=== PATIENT | female | born 1955 | race Caucasian/White ===

== ENCOUNTER 2019-04-18 12:29 | Inpatient (IN) | payer MEDICAID ==
[~2019-04-18] VITALS: Ht 152.4 cm; Wt 64.9 kg
[2019-04-18 13:00] VITALS: BP 139/71
--- NOTE | 2019-04-18 13:04 | NUR ---
WAIT AT LOBBY.HANDED ON URINE CUP.
--- NOTE | 2019-04-18 14:38 | NUR ---
63 Y/O FEMALE BIB DAUGHTER C/O LOWER BACK PAIN, FEVER, AND URINARY FREQUENCY X 2 DAYS. WAS REFERRED FROM URGENT CARE. DENIES TRAUMA TO LOWER BACK. DENIES NAUSEA/VOMITING/DIARRHEA. PT PRESENTS WITH LOW GRADE FEVER AT THIS TIME. STATES SHE HAS NOT TAKEN ANY MEDICATION FOR PAIN. PT SITTING UPRIGHT POSITIONED FOR COMFORT. RR EVEN AND UNLABORED. VSS. MEDHX: DENIES ALLERGIES: NKA
[2019-04-18] MEDS ORDERED: NACL 0.9% 1,000 ML IV SCH (14:49)
--- NOTE | 2019-04-18 15:09 | NUR ---
PT TO CT VIA WHEELCHAIR
[2019-04-18 15:34] LABS: APPEARANCE,URINE CLEAR (CLEAR); BILIRUBIN,URINE NEGATIVE (NEGATIVE); BLOOD, URINE 3+ (NEGATIVE); COLOR,URINE YELLOW (YELLOW); LEUKOCYTE ESTERASE ,URINE 1+ (NEGATIVE); NITRITE, URINE NEGATIVE (NEGATIVE); UGLUCOSE NEGATIVE (NEGATIVE)
[2019-04-18 15:35] LABS: BASOPHILS % (AUTO) 0.5 % (0.0-2.0); EOSINOPHILS % (AUTO) 0.3 % (0.0-4.0); HEMATOCRIT 39.8 % (36-48); HEMOGLOBIN 13.6 g/dL (12.0-16.0); LYMPHOCYTES # (AUTO) 1.8 K/uL (2.5-16.5); LYMPHOCYTES % (AUTO) 29.5 % (20.5-51.1); MEAN CORPUSCULAR HEMOGLOBIN 30 pg (27-31); MEAN CORPUSCULAR HGB CONC 34 g/dL (33-37); MEAN CORPUSCULAR VOLUME 87.5 fL (80-94); MONOCYTES # (AUTO) 0.6 K/uL (0.8-1.0); MONOCYTES % (AUTO) 9.5 % (1.7-9.3); NEUTROPHILS # (AUTO) 3.6 K/uL (1.8-7.7); NEUTROPHILS % (AUTO) 60.2 % (42.2-75.2); PLATELET COUNT (AUTO) 257 K/uL (140-450); RED BLOOD CELL COUNT(AUTO) 4.55 MIL/uL (4.20-5.40); RED CELL DISTRIBUTION WIDTH 13.3 % (11.6-13.7)
--- NOTE | 2019-04-18 15:40 | NUR ---
PT SITTING UPRIGHT AWAKE AND ALERT, RR EVEN AND UNLABORED. CALM AND PLEASANT. DAUGHTER AT BEDSIDE. WILL CONTINUE TO MONITOR
[2019-04-18 15:46] LABS: ALBUMIN 3.7 g/dL (3.4-5.0); ANION GAP 12.4 (8-16); CARBON DIOXIDE 28.3 mmol/L (21-32); CREATININE 0.8 mg/dL (0.6-1.3); POTASSIUM 3.7 mmol/L (3.5-5.1); TOTAL BILIRUBIN 0.3 mg/dL (0.0-1.0)
[2019-04-18 16:02] LABS: WBC,URINE 0-5 /HPF (0-5)
[2019-04-18] MEDS ORDERED: metroNIDAZOLE 500 MG/NS PREMIX 100 ML IV ONE (17:05)
[2019-04-18] MEDS ORDERED: MORPHINE SULFATE 4 MG/ML SYR IVP ONE (17:05)
[2019-04-18] MEDS ORDERED: KETOROLAC 15 MG/ML VIAL IVP PRN (17:10)
[2019-04-18] MEDS ORDERED: DOCUSATE SODIUM 100 MG GELCAP PO PRN (17:10)
[2019-04-18] MEDS ORDERED: ACETAMINOPHEN 325 MG TAB PO PRN (17:10)
[2019-04-18] MEDS ORDERED: ONDANSETRON 4 MG/2 ML VIAL IM/IVP PRN (17:10)
[2019-04-18] MEDS ORDERED: MORPHINE SULFATE 2 MG/ML SYR IVP PRN (17:10)
[2019-04-18] MEDS ORDERED: cefTRIAXone 1,000 MG VIAL ONE (17:13)
--- NOTE | 2019-04-18 17:21 | NUR ---
XRAY AT BEDSIDE
--- NOTE | 2019-04-18 17:28 | NUR ---
PT STATES DECREASE IN PAIN, 5/10 TOLERABLE PAIN. PT LAYING WITH EYES CLOSED, VISIBLE RISE AND FALL OF THE CHEST. WILL CONTINUE TO MONITOR.
[2019-04-18] MEDS ORDERED: PANTOPRAZOLE 40 MG INJ VIAL IVP SCH (17:30)
[2019-04-18 17:43] LABS: PROTHROMBIN TIME 10.4 secs (10.8-13.4)
[2019-04-18 17:46] LABS: BARBITURATE, URINE NEG. ng/ml (NEG <=200); BENZODIAZEPINE, URINE NEG. ng/mL (NEG <=200); CANNABINOID, URINE NEG. ng/mL (NEG <=50); COCAINE, URINE NEG. ng/mL (NEG <=300); OPIATE, URINE NEG. ng/mL (NEG <=2000); PHENCYCLIDINE SCREEN,URINE NEG. ng/mL (NEG <=25)
--- NOTE | 2019-04-18 17:55 | NUR ---
FLAGYL NOT STARTED IN ER. MEDICATION NOT PULLED, XI KIRBY MADE AWARE.
--- NOTE | 2019-04-18 17:55 | NUR ---
PATIENT ADMITTED FROM ED. RECEIVED PT FROM ED STAFF TRANSFERRED VIA HOSPITAL BED. PT AAOX4, AMBULATORY, CONTINENT. IV 20 GAUGE LOCATED ON LAC. TELE MONITOR PLACED. INITIAL VITALS: T:99.6 ORAL, P:82 R:19 SPO2: 95 ON ROOM AIR B/P: 140/71 PAIN: 9/10. MRSA SWAB COMPLETED AT BEDSIDE. PT IN STABLE CONDITION. NO SIGNS OF DISTRESS NOTED. ORIENTED PATIENT TO ROOM, RESTROOM, CALL LIGHT, TV, AND BED LIGHTS. SAFETY MEASURES IN PLACE. BED IN LOW POSITION AND CALL LIGHT WITHIN REACH. PATIENT INFORMED TO CALL FOR ASSISTANCE.
--- NOTE | 2019-04-18 17:55 | NUR ---
Patient will be admitted to care of DR TEAGUE. Admited to TELE. Will go to room 122B. Belongings list completed. Report to XI KIRBY.
--- NOTE | 2019-04-18 18:00 | NUR ---
PER PT'S DAVI'S PT'S BIRTHDAY IS INCORRECT ON WRIST BAND, HER BIRTHDAY IS 1955, AND SHE HAS NOTIFIED ED STAFF. CALLED ADMISSION AND PER ADMISSION, SHE WILL TRANSFER CALL TO ED. SPOKE WITH STAFF AT ED, INFORMED THAT PT'S BIRTHDAY IS INCORRECT ON WRIST BAND. PER ED STAFF, SHE WILL VERIFY, THEN CORRECT IT AND NOTIFIED ADMISSION TO SEND A NEW WRIST BAND. NOTIFIED WATERSHED ENGINEER AND WATERSHED ENGINEER AWARE.
[2019-04-18] MEDS: DEXT 5% /NACL 0.9% 1,000 ML IV SCH (18:02)
--- NOTE | 2019-04-18 18:03 | NUR ---
STARTED IVF D5NS AT 80 ML/HR.
--- NOTE | 2019-04-18 18:20 | NUR ---
ADMINISTERED FLAGYL VIA IVPB AND PROTONIX VIA IVP PER MD ORDER, MEDS ED PROVIDED TO PT AND DAUGHTER DAVI AT BEDSIDE. NO SIGNS OF DISTRESS NOTED. TELE MONITOR ATTACHED. SAFETY MEASURES IN PLACE.
--- NOTE | 2019-04-18 18:33 | NUR ---
PT COMPLAINED OF DRY MOUTH, EXPLAINED TO PT AND DAUGHTER DAVI THAT PT NEED TO BE NPO PER MD ORDER. BOTH AWARE. PROVIDED ICE CHIPS.
[2019-04-18 18:34] LABS: MAGNESIUM 2.1 mg/dL (1.8-2.4); PHOSPHORUS 2.7 mg/dL (2.5-4.9); THYROID STIMULATING HORMONE 2.05 uIU/mL (0.34-3.74)
--- NOTE | 2019-04-18 19:18 | NUR ---
ENDORSED PT AT BEDSIDE TO EATING DISORDER SPECIALIST NURSE FOR CONTINUITY OF CARE. PT IS AWAKE AND TALKING TO FAMILY AT BEDSIDE. NO SIGNS OF DISTRESS NOTED. TELE MONITOR ATTACHED. PT IS IN STABLE CONDITION. ENDORSED EATING DISORDER SPECIALIST NURSE TO FOLLOW UP ON ARM BAND.
--- NOTE | 2019-04-18 19:30 | NUR ---
RECEIVED PT AWAKE ALERT AND ORIENTED X4, AMBULATORY, RESP EVEN AND EASY,LUNG SOUNDS CLEAR, VITAL SIGN WNL, DENIES PAIN AT THIS TIME,IV INFUSING ON LAC,INTACT AND PATENT, ABDOMEN SOFT AND NONTENDER, BOWEL SOUNDS POSITIVE, CALL LIGHT ON REACH , CONTINUE TO MONITOR PT.
[2019-04-18 20:00] VITALS: BP 95/67
--- NOTE | 2019-04-18 21:30 | NUR ---
PM MEDS GIVEN ORDERED ,PT TOLERATED WELL, EKG DONE AT THE BED SIDE, CALL LIGHT ON REACH.
[2019-04-18] MEDS: DICYCLOMINE HCL LIQUID 10 MG/5 ML UDC PO SCH (21:38)
[2019-04-18] MEDS ORDERED: metroNIDAZOLE 500 MG/NS PREMIX 100 ML IV SCH (23:00)
[2019-04-19] VITALS: BP 112/58
[2019-04-19] MEDS: metroNIDAZOLE 500 MG/NS PREMIX 100 ML IV SCH ×3 (01:36→17:46)
--- NOTE | 2019-04-19 02:10 | NUR ---
PT COMPLAIN LEFT LOWER ABDOMINAL PAIN, 6/10 ON THE PAIN SCALE, TORADOL 15 MG IVP GIVEN ,CONTINUE TO MONITOR PT.
--- NOTE | 2019-04-19 04:00 | NUR ---
PT SLEEPING, VITAL SIGN WNL ,IV INFUSING, NO SIGN OF DISCOMFORT NOTED
[2019-04-19 04:39] VITALS: BP 102/46
[2019-04-19 06:33] LABS: ANION GAP 8.5 (8-16); CARBON DIOXIDE 28.2 mmol/L (21-32); CREATININE 0.8 mg/dL (0.6-1.3); POTASSIUM 3.7 mmol/L (3.5-5.1)
--- NOTE | 2019-04-19 06:37 | NUR ---
PT SLEPT 6-8 HRS ON AND OFF, VITAL SIGN WNL, WILL ENDORSE TO DAY NURSE FOR CONTINUITY OF CARE.
[2019-04-19 06:48] LABS: CHOL/HDL RATIO 4.3 (1-4.5)
--- NOTE | 2019-04-19 07:30 | NUR ---
RECEIVED PT FROM PM SHIFT RN. PT KINYARWANDA SPEAKING. AWAKE, ALERT. ON RA, NO S/S OF RESPIRATORY DISTRESS NOTED. LUNG SOUNDS CLEAR. PT HAS IV TO LEFT AC RUNNING D5 NS AT 100 CC/HR. PT DENIES PAIN, PT ABLE TO MOVE ALL HER EXTREMITIES. HOB ELEVATED 30 DEGREES WITH LOW BED POSITION, CALL LIGHT IN REACH, WILL CONTINUE TO MONITOR.
[2019-04-19 08:00] VITALS: BP 117/58
[2019-04-19 08:14] LABS: BASOPHILS % (AUTO) 0.7 % (0.0-2.0); EOSINOPHILS # (AUTO) 0.1 K/uL (0-0.4); EOSINOPHILS % (AUTO) 1.6 % (0.0-4.0); HEMATOCRIT 32.7 % (36-48); HEMOGLOBIN 11.4 g/dL (12.0-16.0); LYMPHOCYTES # (AUTO) 1.9 K/uL (2.5-16.5); LYMPHOCYTES % (AUTO) 35.9 % (20.5-51.1); MEAN CORPUSCULAR HEMOGLOBIN 31 pg (27-31); MEAN CORPUSCULAR HGB CONC 35 g/dL (33-37); MEAN CORPUSCULAR VOLUME 88.3 fL (80-94); MONOCYTES # (AUTO) 0.7 K/uL (0.8-1.0); MONOCYTES % (AUTO) 13.7 % (1.7-9.3); NEUTROPHILS # (AUTO) 2.5 K/uL (1.8-7.7); NEUTROPHILS % (AUTO) 48.1 % (42.2-75.2); PLATELET COUNT (AUTO) 205 K/uL (140-450); RED BLOOD CELL COUNT(AUTO) 3.71 MIL/uL (4.20-5.40); RED CELL DISTRIBUTION WIDTH 13.6 % (11.6-13.7); WHITE BLOOD COUNT (AUTO) 5.2 K/uL (4.8-10.8)
--- NOTE | 2019-04-19 08:35 | NUR ---
PATIENT HAS BEEN SCREENED AND CATEGORIZED MODERATE NUTRITION RISK. PATIENT WILL BE SEEN WITHIN 3-5 DAYS OF ADMISSION. 04/21/19 04/23/[address]
[2019-04-19] MEDS ORDERED: PANTOPRAZOLE 40 MG INJ VIAL IVP SCH (09:00)
--- NOTE | 2019-04-19 09:00 | NUR ---
ZULY ALEXANDER MD, DR IN UNIT. ASKED ABOUT NPO ORDER. PER DR. CARUSO, OK NPO EXCEPT MEDS. DR. ALLEN STATED HE WILL CHANGE ORDER TO NPO EXCEPT MEDS.
[2019-04-19] MEDS: DICYCLOMINE HCL LIQUID 10 MG/5 ML UDC PO SCH (09:01)
[2019-04-19] MEDS: DEXT 5% /NACL 0.9% 1,000 ML IV SCH ×3 (09:04→22:59)
[2019-04-19 12:00] VITALS: BP 118/55
--- NOTE | 2019-04-19 12:13 | NUR ---
PT SITTING IN BED WATCHING IPAD. FAMILY AT BEDSIDE. DENIES DISCOMFORT AT THIS TIME.
--- NOTE | 2019-04-19 14:44 | NUR ---
DC PLANN[age] YRS OLD FEMALE PATIENT WAS ADMITTED FROM HOME WITH A DX OF DIVERTICULITIS, MICROPERFORATION, . PT HAS A HX OF HTN , NEPHROLITHIASIS AND CHRONIC COLITIS. CT ABD SHOWED ACUTE SIGMOID DIVERTICULITIS .STARTED ON IVF, FLAGYL AND ROCEPHIN IV ABX . CONSULTED WITH GI DR CARUSO AND SURGEON DR MOREAU. URINE CULTURE PENDING. DC PLAN TO GO HOME WHEN STABLE. CM TO FOLLOW. Addendum: 04/20/19 at 1424 by Rocio Stanton CM DC PLANNING: SEEN BY DR CARUSO RECOMMENDED SUPPORTIVE CARE AND CONSIDER COLONOSCOPY IN THE NEAR FUTURE ONCE THE ACUTE DIVERTICULITIS SYMPTOMS RESOLVE. CONTINUE IV ABX AND IVF. DC PLAN TO GO HOME WHEN STABLE. CM TO FOLLOW.
[2019-04-19 16:00] VITALS: BP 120/53
[2019-04-19] MEDS ORDERED: HYOSCYAMINE 0.125 MG TAB PO PRN (16:10)
--- NOTE | 2019-04-19 19:15 | NUR ---
REPORT RECEIVED FROM AM NURSE AT BEDSIDE. PT IN STABLE CONDITION. AAOX4. INTRODUCED SELF TO PT. BOARD UPDATED. NO COMPLAINTS OF PAIN. NO SOB. AFEBRILE. PT IS AMBULATORY. PT IS SERBIAN SPEAKING. IV SITE L AC 20G RUNNING D5NS@70ML/HR PATENT AND INTACT. SKIN WARM, DRY, AND INTACT WITH NO OPEN WOUNDS. BED LOCKED IN LOW POSITION. CALL JOHNSON IN REACH. SAFETY PRECAUTION IN PLACE. ALL NEEDS MET AT THIS TIME.
[2019-04-19 20:00] VITALS: BP 135/60
--- NOTE | 2019-04-19 20:25 | NUR ---
PT FAMILY AT BEDSIDE. UPDATED FAMILY AND PT WITH PLAN OF CARE. PLAN UNDERSTOOD.
--- NOTE | 2019-04-19 22:15 | NUR ---
PT AWAKE AND ALERT WATCHING SHOWS ON HER IPAD. NO S/S OF DISTRESS NOTED. WILL CONTINUE TO MONITOR.
[2019-04-20] VITALS: BP 130/56
--- NOTE | 2019-04-20 00:25 | NUR ---
PT SLEEPING COMFORTABLY BUT AROUSABLE. VS STABLE. NO S/S OF DISTRESS NOTED. WILL CONTINUE TO MONITOR.
[2019-04-20] MEDS: metroNIDAZOLE 500 MG/NS PREMIX 100 ML IV SCH ×3 (01:48→18:11)
--- NOTE | 2019-04-20 01:48 | NUR ---
ELIUD HUNG AND RUNNING. PT TOLERATING WELL.
--- NOTE | 2019-04-20 03:15 | NUR ---
PT SLEEPING COMFORTABLY BUT AROUSABLE. NO S/S OF DISTRESS NOTED. RESPIRATIONS EVEN, UNLABORED, AND WNL. WILL CONTINUE TO MONITOR.
[2019-04-20 04:00] VITALS: BP 115/54
--- NOTE | 2019-04-20 05:05 | NUR ---
PT SLEEPING COMFORTABLY BUT AROUSABLE. NO S/S OF DISTRESS NOTED. NO COMPLAINTS OF PAIN. NO SOB. AFEBRILE. WILL CONTINUE TO MONITOR.
[2019-04-20 06:19] LABS: ANION GAP 10.7 (8-16); CARBON DIOXIDE 28.4 mmol/L (21-32); CREATININE 0.8 mg/dL (0.6-1.3); POTASSIUM 3.1 mmol/L (3.5-5.1)
[2019-04-20 06:25] LABS: MAGNESIUM 1.9 mg/dL (1.8-2.4)
[2019-04-20 06:54] LABS: BASOPHILS % (AUTO) 0.6 % (0.0-2.0); EOSINOPHILS # (AUTO) 0.2 K/uL (0-0.4); EOSINOPHILS % (AUTO) 3.4 % (0.0-4.0); HEMOGLOBIN 11.9 g/dL (12.0-16.0); LYMPHOCYTES # (AUTO) 1.9 K/uL (2.5-16.5); LYMPHOCYTES % (AUTO) 35.6 % (20.5-51.1); MEAN CORPUSCULAR HEMOGLOBIN 30 pg (27-31); MEAN CORPUSCULAR HGB CONC 34 g/dL (33-37); MONOCYTES # (AUTO) 0.4 K/uL (0.8-1.0); MONOCYTES % (AUTO) 8.1 % (1.7-9.3); NEUTROPHILS # (AUTO) 2.8 K/uL (1.8-7.7); NEUTROPHILS % (AUTO) 52.3 % (42.2-75.2); PLATELET COUNT (AUTO) 274 K/uL (140-450); RED BLOOD CELL COUNT(AUTO) 3.93 MIL/uL (4.20-5.40); RED CELL DISTRIBUTION WIDTH 13.6 % (11.6-13.7); WHITE BLOOD COUNT (AUTO) 5.3 K/uL (4.8-10.8)
--- NOTE | 2019-04-20 07:07 | NUR ---
RECEIVED BEDSIDE REPORT FROM LEAD PORTFOLIO MANAGER NURSE MICHEAL FOR CONTINUITY OF CARE. PT IS RESTING ON BED AND AROUSABLE TO VOICE. PT IS AAOX4, SPEAK [place] AND ABLE TO UNDERSTAND MINIMAL IRISH. RESPIRATION EVEN AND UNLABORED ON RA. DENIED PAIN, SOB, AND DIZZINESS. NO SIGNS OF DISTRESS NOTED. IV ON LAC 20G, CLEAN AND INTACT, INFUSING PER MD ORDER. SKIN CLEAN AND DRY. TELE MONITOR ATTACHED. SAFETY MEASURES IN PLACE. BED IN LOW POSITION AND CALL LIGHT WITHIN REACH. INSTRUCTED PT TO USE THE CALL LIGHT FOR ANY ASSISTANCE AND PT AWARE.
[2019-04-20 08:00] VITALS: BP 120/57
[2019-04-20] MEDS ORDERED: PSYLLIUM 12.2 GM/PKT PO SCH (09:00)
[2019-04-20] MEDS: POLYETHYLENE GLYCOL 17 GM/PKT PO SCH (10:22)
--- NOTE | 2019-04-20 10:22 | NUR ---
ADMINISTERED MEDS PER MD ORDER, MEDS EDUCATION PROVIDED TO PT AND VISITOR JUNE AT BEDSIDE, BOT VERBALIZED UNDERSTANDING. PT TOLERATED MEDS WELL. PT AWAKE AND TALKING TO JUNE AT THIS TIME. DENIED PAIN, SOB, NAUSEA AND VOMITING. NO SIGNS OF DISTRESS NOTED. SAFETY MEASURES IN PLACE.
[2019-04-20] MEDS: KCL 20 MEQ/WATER INJ PREMIX 200 ML IV PRN ×2 (11:18→13:49)
--- NOTE | 2019-04-20 11:18 | NUR ---
ADMINISTERED THE 1ST BAG OF POTASSIUM CHLORIDE FOR LOW POTASSIUM 3.1 FROM AM LAB, [facility] ED PROVIDED TO PT AND FAMILY MEMBER JUNE AT BEDSIDE, BOTH VERBALIZED UNDERSTANDING. PT IS TALKING TO JUNE AT BEDSIDE. DENIED PAIN, NAUSEA AND VOMITING. NO SIGNS OF DISTRESS NOTED. SAFETY MEASURES IN PLACE.
[2019-04-20] MEDS: PSYLLIUM 12.2 GM/PKT PO SCH ×2 (13:47→21:06)
--- NOTE | 2019-04-20 13:49 | NUR ---
ADMINISTERED MUTACIL WITH 8 OZ OF WATER PO AND STARTED 2ND BAG OF POTASSIUM CHLORIDE FOR LOW POTASSIUM 3.1 FROM AM LAB, MEDS EDUCATION PROVIDED TO PT AND FAMILY MEMBER JUNE AT BEDSIDE, BOTH VERBALIZED UNDERSTANDING. PT IS TALKING TO JUNE AT BEDSIDE THIS TIME. NO SIGNS OF DISTRESS NOTED. SAFETY MEASURES IN PLACE.
--- NOTE | 2019-04-20 15:23 | NUR ---
PT AWAKE AND TALKING TO FAMILY MEMBER JUNE AT BEDSIDE. DENIED PAIN, NAUSEA AND VOMITING. NO SIGNS OF DISTRESS NOTED. SAFETY MEASURES IN PLACE.
[2019-04-20] MEDS ORDERED: POTASSIUM CHLORIDE 40 MEQ, LIDOCAINE MPF 1% 25 MG in NACL 0.9% 250 ML IV ONE (15:30)
--- NOTE | 2019-04-20 15:42 | NUR ---
ADMINISTERED CALCIUM VIA PO PER MD ORDER, MED EDUCATION PROVIDED TO PT, PT SAID OK. PT TOLERATED MED WELL. PT AWAKE AND TALKING TO FAMILY MEMBER JUNE AT BEDSIDE. NO SIGNS OF DISTRESS NOTED. SAFETY MEASURES IN PLACE.
[2019-04-20] MEDS ORDERED: CALCIUM CARB/VIT-D 500 MG/200 IU 1 TAB PO SCH (15:45)
[2019-04-20 16:00] VITALS: BP 134/68
--- NOTE | 2019-04-20 17:09 | NUR ---
ADMINISTERED ROCEPHIN VIA IVPB PER MD ORDER, MED EDUCATION PROVIDED TO PT AND FAMILY MEMBER JUNE, BOTH SAID OK. PT AWAKE AND TALKING TO FAMILY MEMBER JUNE AT BEDSIDE. DENIED PAIN, SOB, AND DIZZINESS. NO SIGNS OF DISTRESS NOTED. SAFETY MEASURES IN PLACE.
--- NOTE | 2019-04-20 18:11 | NUR ---
ADMINISTERED FLAGYL PER MD ORDER VIA IVPB, MED EDUCATION PROVIDED TO PT AND FAMILY MEMBER JUNE, BOTH VERBALIZED UNDERSTANDING. PT IS EATING DINNER ON BED AT THIS TIME. NO SIGNS OF DISTRESS NOTED. SAFETY MEASURES IN PLACE. BED IN LOW POSITION AND CALL LIGHT WITHIN REACH.
--- NOTE | 2019-04-20 19:05 | NUR ---
ENDORSED PT AT BEDSIDE TO DOLL WIG MAKER NURSE KATELYN FOR CONTINUITY OF CARE. PT AWAKE AND TAKING TO FAMILY AT BEDSIDE. NO SIGNS OF DISTRESS NOTED. SAFETY MEASURES IN PLACE. PT IS IN STABLE CONDITION.
--- NOTE | 2019-04-20 19:10 | NUR ---
RECEIVED PT IN STABLE CONDITION FROM AM NURSE. AWAKE,ALERT AND ORIENTED X4. MED SURG PT. WITH NO C/O ANY DISCOMFORT NOR PAIN NOTED. HAS IVF INFUSING WELL ON THE LT AC G#20. CLEAR AND PATENT. PLAN OF CARE DISCUSSED AND VERBALIZED UNDERSTANDING. BED ON LOW POSITION. SIDE RAILS UP X2. CALL LIGHT PLACED WITHIN EASY REACH. WILL CONTINUE TO MONITOR.
--- NOTE | 2019-04-20 21:00 | NUR ---
DUE MEDS GIVEN. NO C/O ANY PAIN NOR DISCOMFORT NOTED.
--- NOTE | 2019-04-20 23:00 | NUR ---
ASLEEP. NO S/S OF ANY DISCOMFORT NOTED.
[2019-04-21] VITALS: BP 118/61
[2019-04-21] MEDS ORDERED: guaiFENesin/CODEINE 100/10MG 5 ML UDC PO PRN (01:20)
[2019-04-21] MEDS: metroNIDAZOLE 500 MG/NS PREMIX 100 ML IV SCH ×2 (01:40→09:43)
--- NOTE | 2019-04-21 02:05 | NUR ---
C/O OCCASIONAL NON PRODUCTIVE COUGH. DR. BALES MADE AWARE WITH ORDER. GIVEN COUGH MEDICINE ORDERED.
--- NOTE | 2019-04-21 03:30 | NUR ---
MADE ROUND. NO ASLEEP. NO S/S OF ANY DISCOMFORT NOTED.
--- NOTE | 2019-04-21 05:00 | NUR ---
MADE ROUNDS. PT IS ASLEEP. NO S/S OF ANY PAIN NOTED.
[2019-04-21 06:14] LABS: BASOPHILS % (AUTO) 0.4 % (0.0-2.0); EOSINOPHILS # (AUTO) 0.3 K/uL (0-0.4); EOSINOPHILS % (AUTO) 4.4 % (0.0-4.0); HEMATOCRIT 35.4 % (36-48); HEMOGLOBIN 12.1 g/dL (12.0-16.0); LYMPHOCYTES # (AUTO) 1.5 K/uL (2.5-16.5); LYMPHOCYTES % (AUTO) 25.3 % (20.5-51.1); MEAN CORPUSCULAR HEMOGLOBIN 30 pg (27-31); MEAN CORPUSCULAR HGB CONC 34 g/dL (33-37); MEAN CORPUSCULAR VOLUME 87.7 fL (80-94); MONOCYTES # (AUTO) 0.5 K/uL (0.8-1.0); MONOCYTES % (AUTO) 8.8 % (1.7-9.3); NEUTROPHILS # (AUTO) 3.7 K/uL (1.8-7.7); NEUTROPHILS % (AUTO) 61.1 % (42.2-75.2); PLATELET COUNT (AUTO) 253 K/uL (140-450); RED BLOOD CELL COUNT(AUTO) 4.04 MIL/uL (4.20-5.40); RED CELL DISTRIBUTION WIDTH 13.5 % (11.6-13.7)
[2019-04-21 06:31] LABS: ANION GAP 10.9 (8-16); CARBON DIOXIDE 28.6 mmol/L (21-32); CREATININE 0.8 mg/dL (0.6-1.3); POTASSIUM 3.5 mmol/L (3.5-5.1)
[2019-04-21 06:40] LABS: MAGNESIUM 1.8 mg/dL (1.8-2.4); PHOSPHORUS 3.4 mg/dL (2.5-4.9)
--- NOTE | 2019-04-21 07:15 | NUR ---
ENDORSED PT IN STABLE CONDITION TO AM NURSE.
--- NOTE | 2019-04-21 07:16 | NUR ---
RECEIVED BEDSIDE REPORT FROM NIGHT NURSE, PT STABLE, PT HAS LAC 20G SALINE LOCK, PT IS AA0X4, PT IS STABLE, INTRODUCE SELF, UPDATE WHITEBOARD, SAFETY MEASURES IN PLACE, WILL CONTINUE TO MONITOR, CALL LIGHT WITHIN REACH.
[2019-04-21 08:00] VITALS: BP 127/69
[2019-04-21] MEDS ORDERED: CALCIUM CARB/VIT-D 500 MG/200 IU 1 TAB PO SCH (09:00)
[2019-04-21] MEDS ORDERED: LEVO750T2 PO (09:24)
[2019-04-21] MEDS ORDERED: METR250T2 PO (09:24)
[2019-04-21] MEDS: POLYETHYLENE GLYCOL 17 GM/PKT PO SCH (09:42)
[2019-04-21] MEDS: PSYLLIUM 12.2 GM/PKT PO SCH (09:42)
--- NOTE | 2019-04-21 09:43 | NUR ---
GAVE PT ORDERED MEDICATION, EDUCATION GIVEN, PT VERBALIZED UNDERSTANDING, PT IS STABLE, CALL LIGHT WITHIN REACH.
[2019-04-21] MEDS ORDERED: INFLUENZA VACCINE QUAD 0.5 ML SYR IMVAC PRN (11:10)
--- NOTE | 2019-04-21 11:27 | NUR ---
GAVE PT FLU AND PNA VACCINE, EDUCATION GIVEN, PT VERBALIZED UNDERSTANDING, PT STABLE, DAUGHTER AT BEDSIDE, CALL LIGHT WITHIN REACH.
[2019-04-21] MEDS ORDERED: PNEUMOCOCCAL VACCINE 23 MCG/0.5 ML VIAL IMVAC SCH (12:00)
--- NOTE | 2019-04-21 12:45 | NUR ---
DISCHARGED PT FOR HOME, PT AMBULATE OUT OF THE HOSPITAL WITH STEADY GAIT, ACCOMPANIED BY DAUGHTER, PT HAD HER FLU AND PNA VACCINE, PT IS STABLE.
== END 2019-04-21 12:45 | disposition home or self-care (01) | DRG 244 ==
LOC: MED 12:29 → EDBD 17:06 → MTU 17:06
PROVIDERS: ADMIT General Practice; ATTEND General Practice
PROC: 3E0234Z Introduction of Serum, Toxoid and Vaccine into Muscle, Percutaneous Approach (ICD-10-PCS; principal; 2019-04-21)
PROC: 3E02340 Introduction of Influenza Vaccine into Muscle, Percutaneous Approach (ICD-10-PCS; 2019-04-21)
DX: K57.80 Diverticulitis of intestine, part unspecified, with perforation and abscess without bleeding (principal); E83.51 Hypocalcemia; N39.0 Urinary tract infection, site not specified; Z23 Encounter for immunization; R31.9 Hematuria, unspecified; E87.6 Hypokalemia; K52.89 Other specified noninfective gastroenteritis and colitis; Z98.891 History of uterine scar from previous surgery; Z90.49 Acquired absence of other specified parts of digestive tract
CPT/HCPCS: 36415; 71045; 76770; 80048; 80053; 80305; 81001; 82150; 83036; 83690; 83735; 83880; 84100; 84443; 85025; 85610; 85730; 87040; 87081; 87086; 90732; 93005; 96361; 96365; 96375; 99285; C9113; J0696; J1885; J2001; J2270; J3480; J3490; J7030; J7042; J7060; Q0092